=== PATIENT | female | born 1950 | race Caucasian/White ===

== ENCOUNTER → 2017-04-06 | Outpatient (CLI) | payer MEDICARE ==
--- NOTE | 2017-04-07 08:14 | RAD ---
EXAM DESCRIPTION: Ankle,Right 3 Views CLINICAL HISTORY: 66 years, Female, RIGHT ANKLE PAIN COMPARISON: None. TECHNIQUE: AP/lateral/oblique of the ankle FINDINGS: A transverse fracture at the tip of the lateral malleolus of the right ankle is present in essentially anatomic alignment. No disruption or widening of the ankle mortise is noted with modest soft tissue swelling laterally. Fracture fragment is approximately 5 mm in thickness and involves the tip of the lateral malleolus. The subtalar joint in the posterior medial malleoli are intact. IMPRESSION: 1. Nondisplaced lateral malleolar fracture at the tip of the lateral malleolus. Electronically signed by: Zev Ly MD 04/07/2017 8:13 AM CDT
== END | disposition home or self-care (01) ==
LOC: RAD 08:05
PROVIDERS: ATTEND Orthopaedic Surgery
DX: M25.571 Pain in right ankle and joints of right foot (principal)

== ENCOUNTER → 2017-04-20 | Outpatient (CLI) | payer MEDICARE ==
--- NOTE | 2017-04-21 12:35 | RAD ---
EXAM DESCRIPTION: Ankle,Right 3 Views CLINICAL HISTORY: CLOSED FX OF DISTAL FIBULA COMPARISON: April 06, 2017 IMPRESSION: 3 views of the right ankle again demonstrate a minimally displaced obliquely transverse fracture of the distal fibula unchanged from previous exam. There may be slightly more indistinctness of the fracture margins without significant periosteal thickening or bridging callus formation at this time. Mild soft tissue swelling over the lateral malleolus is seen. No other fracture or dislocation is seen. Electronically signed by: Josesito Head MD 04/21/2017 12:34 PM [facility]
== END | disposition home or self-care (01) ==
LOC: RAD 07:43
PROVIDERS: ATTEND Orthopaedic Surgery
DX: S82.831D Other fracture of upper and lower end of right fibula, subsequent encounter for closed fracture with routine healing (principal); X58.XXXA Exposure to other specified factors, initial encounter

== ENCOUNTER → 2017-05-19 | Outpatient (CLI) | payer MEDICARE ==
--- NOTE | 2017-05-20 03:27 | RAD ---
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 There is some osseous bridging of the previously noted fracture line. Ankle mortise is symmetric. Electronically signed by: Loki Arriaga MD 05/20/2017 3:26 AM OFFSET PRESS OPERATOR APPRENTICE
== END ==
LOC: RAD 07:37
PROVIDERS: ATTEND Orthopaedic Surgery
DX: S82.831D Other fracture of upper and lower end of right fibula, subsequent encounter for closed fracture with routine healing (principal)

== ENCOUNTER → 2018-12-24 | Outpatient (CLI) | payer MEDICARE ==
--- NOTE | 2018-12-25 07:39 | RAD ---
EXAM DESCRIPTION: Lumbar Spine 3 Views CLINICAL HISTORY: 68 years Female, LOW BACK PAIN COMPARISON: None. FINDINGS: Three views of the lumbar spine show slight convex rightward curvature of the right apex at the L2 level. No vertebral body fracture or subluxation. Disc space narrowing at several levels, worse at L2-3. The spinous and transverse processes are intact. The sacroiliac joints are unremarkable. IMPRESSION: Moderately advanced degenerative disc disease at L2-3 with less advanced degenerative changes elsewhere in the lumbar spine. Slight convex rightward curvature of the lower thoracic and lumbar spine. Electronically signed by: Rocky Oliveira MD 12/25/2018 7:37 AM CDT
== END ==
LOC: RAD 16:58
PROVIDERS: ATTEND Emergency Medicine
DX: M51.36 Other intervertebral disc degeneration, lumbar region (principal); M41.25 Other idiopathic scoliosis, thoracolumbar region

== ENCOUNTER → 2019-02-27 | Outpatient (CLI) | payer MEDICARE ==
--- NOTE | 2019-02-28 18:34 | US ---
EXAM DESCRIPTION: Abdomen,Complete: Ultrasound. CLINICAL HISTORY: ABD DISTENSION COMPARISON: Ultrasound of the pelvis on the same visit. TECHNIQUE: Transabdominal scanning: grayscale and Doppler modes.. Technically difficult study due to patient body habitus. FINDINGS: Gallbladder: Normal size and echogenicity with no intraluminal stones or sludge. Wall thickness 2.7 mm is normal. No fluid around the wall. Nontender with transducer pressure. Common bile duct: 4.5 mm normal caliber. Liver: Right lobe 14.9 cm long axis with no focal lesions. Overall increased echogenicity. Normal caliber of the portal vein with hepatopedal flow. Ducts normal caliber. Smooth capsule. Pancreas: Normal echoes and pancreatic duct not seen. Minimal fluid around the head of the pancreas.. Abdominal aorta: Normal caliber from the proximal segment to the distal bifurcation. IVC: visualized; normal caliber. Spleen normal echogenicity; long axis measurement is 11.6 cm. No fluid around the spleen. Right kidney: 9.9 cm long axis with cortical thickness 12 mm. Normal echogenicity. No echogenic stones, no perirenal fluid, no hydronephrosis. Left kidney: 10.3 cm long axis with cortical thickness 11 mm. Normal echogenicity. No echogenic stones, no perirenal fluid, no hydronephrosis. IMPRESSION: 1. Minimal fluid around the pancreas. Normal echogenicity. No fluid around the spleen or liver. Normal echoes of the spleen. Steatosis of the liver. Normal vascularity and ducts. 2. Gallbladder is negative. Common bile duct normal caliber. 3. Minimal cortical thinning and lower kidneys with normal echogenicity. Otherwise unremarkable. Electronically signed by: Stephen Han MD 02/28/2019 6:32 PM CDT
== END ==
LOC: US 08:00
PROVIDERS: ATTEND Emergency Medicine
DX: R14.0 Abdominal distension (gaseous) (principal); K76.0 Fatty (change of) liver, not elsewhere classified; R18.8 Other ascites

== ENCOUNTER → 2019-02-28 | Outpatient (CLI) | payer MEDICARE ==
--- NOTE | 2019-02-28 18:40 | US ---
EXAM DESCRIPTION: Pelvis Transvaginal: Ultrasound. CLINICAL HISTORY: 68 years Female ABDOMINAL DISTENSION COMPARISON: Ultrasound of the abdomen on the same visit. TECHNIQUE: Endovaginal scanning; Myers-scale and Doppler modes. FINDINGS: Uterus 6.4 x 5.3 x 3.4 cm . Endometrial thickness is 8.8 mm; heterogeneous. Myometrium appears heterogeneous.. Echogenic heterogeneous mass measures 2.8 x 2.4 x 2.4 cm. Second mass is also most likely a fibroid and measures 1.3 x 1.1 x 1.0 cm. Uterus retroflexed or retroverted. Cervix cyst measures 3.9 x 2.9 mm.. Cul-de-sac contains no fluid. Ovaries not well seen in the adnexa. No adnexal mass or free fluid. IMPRESSION: 1. Uterus appears to be retroverted or retroflexed. Not enlarged. Abnormally thickened endometrium and heterogeneous in a postmenopausal female. 2.8 and 1.3 cm fibroids. Nabothian cyst in the cervix. Gynecological consult is recommended. 2. No adnexal mass or fluid. Ovaries not seen. Electronically signed by: Stephen Han MD 02/28/2019 6:39 PM CDT
== END ==
LOC: US 14:00
PROVIDERS: ATTEND Emergency Medicine
DX: R14.0 Abdominal distension (gaseous) (principal); N85.8 Other specified noninflammatory disorders of uterus; D25.9 Leiomyoma of uterus, unspecified; N88.8 Other specified noninflammatory disorders of cervix uteri

== ENCOUNTER → 2019-03-01 | Outpatient (CLI) | payer MEDICARE ==
--- NOTE | 2019-03-04 12:29 | MRI ---
EXAM DESCRIPTION: Lumbar Spine w/o Contrast : Magnetic Resonance Imaging. CLINICAL HISTORY: RADICULOPATHY COMPARISON: Radiographs lumbar spine 12/24/2018. TECHNIQUE: Multiplanar, multiple standard sequences, non contrast MRI, lumbar spine. FINDINGS: L5-S1: The disc is well visualized on axial T2 series 501, image 3. Disc desiccation with disc space maintained no significant bulging. Hypertrophic arthrosis right facet and thickening of the right flavum ligament with canal patent. Mild bilateral foraminal narrowing. L4-L5: Disc desiccation, with disc space maintained and no bulging. Hypertrophic right facet arthrosis and bilateral ligament thickening. Mild canal narrowing. Bilateral mild foraminal narrowing. L3-L4: Disc desiccation and minimal disc space loss. Trace retrolisthesis. Schmorl's node in the inferior L3 endplate. Hypertrophic facet arthrosis on the right with no ligament thickening. Mild canal narrowing. Bilateral foramina are patent. L2-L3: Disc desiccation and disc space loss and endplate changes more severe in the midline and left of midline. Anterior disc bulging and endplate ridging. Schmorl's node. Trace retrolisthesis. Posterior disc and spur bulge more to the left of midline. Bilateral hypertrophic facet arthrosis and ligament thickening. AP canal diameter 12 mm. Disc osteophyte complex bulge into the left foramen with moderate to severe narrowing. Right foramen is patent. L1-L2: Disc desiccation and Anterior minimal endplate reactive changes, and minimal disc bulge. Canal and bilateral foramina are patent. T12-L1: Minimal disc desiccation with disc space maintained. Prominent anterior bulge. Posterior elements unremarkable. Canal and foramina are patent. Conus terminates at this level. L3-S1 levoscoliosis. T12-L3 dextroscoliosis. Paravertebral soft tissues negative. Distal cord normal signal and caliber. Normal marrow signal in the remaining vertebral bodies and the posterior elements. Vertebral bodies are not compressed at any level. IMPRESSION: 1. Multiple levels of disc desiccation, hypertrophic facet arthrosis and ligament thickening. Lumbar scoliosis. No canal or foraminal stenosis, but moderate to severe narrowing on the left at L2-L3 caused by bulging disc osteophyte complex. Multiple Schmorl's nodes in the endplates L1-L3. 2. Moderate spondylosis on the left at L2-L3 with posterior disc and spur bulge to the left of midline. Electronically signed by: Stephen Han MD 03/04/2019 12:27 PM CDT
== END ==
LOC: MRI 11:00
PROVIDERS: ATTEND Emergency Medicine
DX: M51.16 Intervertebral disc disorders with radiculopathy, lumbar region (principal); M51.46 Schmorl's nodes, lumbar region; M47.26 Other spondylosis with radiculopathy, lumbar region; R14.0 Abdominal distension (gaseous)

== ENCOUNTER 2019-10-16 20:01 | Emergency (ER) | payer MEDICARE ==
[2019-10-16 20:58] VITALS: TEMP 97.3
--- NOTE | 2019-10-16 20:58 | ED.PDOC ---
History of Present Illness - General Chief Complaint: Headache Stated Complaint: headache for 3 days Time Seen by Provider: 10/16/19 20:17 Source: patient, family Exam Limitations: no limitations - History of Present Illness Initial Comments: 69 y/o female with complaint of h/a for 3+ days starting dull and not very severe until today. She has felt nauseated and says her eyes hurt not just with light, denies neck stiffness, f/c, sinus or urinary problems. Her blood pressure is very high on arrival Allergies/Adverse Reactions: Allergies NO KNOWN ALLERGY Allergy (Verified 06/15/12 13:54) Home Medications: Ambulatory Orders Acyclovir [Zovirax] 400 mg PO Q8HRS #21 tab 04/12/14 predniSONE 20 mg PO BID #10 tab 04/12/14 Mecssnhohpjfn-Wsko-Cgpdkbgbdh [Fioricet] 1 ea PO Q4HR PRN #20 tab 10/16/19 Review of Systems - Review of Systems EENTM: States: eye pain Respiratory: States: no symptoms reported Cardiology: States: no symptoms reported Gastrointestinal/Abdominal: States: nausea Genitourinary: States: no symptoms reported Musculoskeletal: States: no symptoms reported Neurological: States: see HPI, headache Endocrine: States: other - Nuris's Past Medical History (General) - Patient Medical History Hx Seizures: No Hx Stroke: No Hx Dementia: No Hx Asthma: No Hx of COPD: No Hx Cardiac Disorders: No Hx Congestive Heart Failure: No Hx Pacemaker: No Hx Hypertension: Yes Hx Thyroid Disease: Yes Hx Diabetes: No Hx Gastroesophageal Reflux: No Hx Renal Disease: No Hx Cancer: No Hx of HIV: No Hx Hepatitis C: No Hx MRSA: No Surgical History: other - Vaccination History Hx Tetanus, Diphtheria Vaccination: No Hx Influenza Vaccination: No Hx Pneumococcal Vaccination: No Immunizations Up to Date: No - Social History Hx Tobacco Use: No Hx Chewing Tobacco Use: No Hx Alcohol Use: No Hx Substance Use: No Hx Substance Use Treatment: No Hx Depression: No Feels Threatened In Home Enviroment: No Feels Threatened In a Relationship: No Hx Physical Abuse: No Hx Emotional Abuse: No Hx Suspected Abuse: No - Activities of Daily Living Hospice Agency (if applicable):: None - Female History Patient is a Female of Child Bearing Age (10 -59 yrs old): No Family Medical History - Family History Mother Family History: Unknown Physical Exam - Physical Exam General Appearance: Anxious Eyes, Ears, Nose, Throat Exam: normal ENT inspection, pharynx normal Neck: non-tender, full range of motion, supple, normal inspection Cardiovascular/Chest: regular rate, rhythm, no edema, no gallop, no JVD, no murmur Respiratory: chest non-tender, lungs clear, normal breath sounds, no respiratory distress Gastrointestinal/Abdominal: non tender, soft, no organomegaly Back Exam: no CVA tenderness Extremity: normal range of motion, non-tender 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, 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: normal hearing, normal speech, PERRL Coordination/Gait: normal gait Motor/Sensory: no motor deficit, no sensory deficit Skin Exam: warm/dry, normal color Progress - Progress Progress: 10/16/19 21:55 H/A is much better Departure - Departure Clinical Impression: Elevated blood pressure, situational Headache Qualifiers: Headache type: unspecified Headache chronicity pattern: acute headache Intractability: intractable Qualified Code(s): R51 - Headache Disposition: Discharge to Home or Self Care Condition: Good Instructions: DI for Headache Referrals: SOLANGE BOYKIN [Primary Care Provider] - 1-2 Weeks Prescriptions: Zjwjyxtjtsbpr-Amck-Gvgkdvhnpn [Fioricet] 1 ea PO Q4HR PRN #20 tab PRN Reason: Headache Or Mild Pain Home Medications: Ambulatory Orders Acyclovir [Zovirax] 400 mg PO Q8HRS #21 tab 04/12/14 predniSONE 20 mg PO BID #10 tab 04/12/14 Qfhvtiowaphxu-Cjow-Nhakjeekmt [Fioricet] 1 ea PO Q4HR PRN #20 tab 10/16/19 Additional Instructions: sutures out in 7-10 days
[2019-10-16] MEDS: diphenhydrAMINE HCL 50 MG/ML VIAL IV PRN (20:59)
[2019-10-16] MEDS: SODIUM CHLORIDE 0.9% 500ML 500 ML IVS ONE (20:59)
[2019-10-16] MEDS: KETOROLAC TROMETHAMINE INJ 30 MG/ML VIAL IV ONE (20:59)
[2019-10-16] MEDS: HALOPERIDOL LACTATE INJ 5 MG/ML VIAL IV ONE (21:00)
--- NOTE | 2019-10-16 21:13 | CT ---
PROCEDURE: CT HEAD WITHOUT IV CONTRAST CLINICAL HISTORY: severe h/a for several days TECHNIQUE: Contiguous axial CT images obtained through the brain without IV contrast. Coronal and sagittal reformatted images were provided. This exam was performed according to our departmental dose-optimization program, which includes automated exposure control, adjustment of the mA and/or kV according to patient size and/or use of iterative reconstruction technique. COMPARISON: 04/12/2014 FINDINGS: Brain: Mild cerebral atrophy and bilateral periventricular and subcortical white matter low-attenuation most compatible with chronic microvascular angiopathy, mildly progressed. No focal mass effect. Myers-white matter differentiation is within normal limits. No hemorrhage. Ventricles: No ventriculomegaly or midline shift. Extra-axial spaces: No extra-axial collection or hemorrhage. Paranasal sinuses and mastoid air cells: Minimal right maxillary sinus mucosal thickening. Vessels: There is atherosclerotic disease of the internal carotid arteries bilaterally. Bones: Unremarkable Soft tissues: Unremarkable IMPRESSION: 1. No acute intracranial or extra-axial abnormality. 2. Other findings as above. Electronically signed by: Jimmy Garnica MD 10/16/2019 9:11 PM CDT
[2019-10-16 23:31] VITALS: BP 148/91; O2SAT 95
== END 2019-10-16 23:46 | disposition home or self-care (01) ==
LOC: ER 20:01
DX: R51 Headache (principal); I10 Essential (primary) hypertension; R11.0 Nausea
CPT/HCPCS: 36415; 70450; 80053; 81001; 84443; 85025; J1200; J1630; J1885; J7040

== ENCOUNTER 2019-10-23 09:31 | Observation (INO) | payer MEDICARE ==
[2019-10-23] MEDS ORDERED: PROMETHAZINE HCL INJ 12.5 MG in SODIUM CHLORIDE 0.9% 50ML 50 ML IVPB ONE (09:38)
[2019-10-23] MEDS ORDERED: diphenhydrAMINE HCL 50 MG/ML VIAL IV STA (09:38)
[2019-10-23] MEDS ORDERED: DEXAMETHASONE INJ 10 MG/ML VIAL IV ONE (09:38)
[2019-10-23] MEDS ORDERED: hydrALAZINE HCl 20 MG/ML VIAL IV ONE (09:44)
--- NOTE | 2019-10-23 09:44 | ED.PDOC ---
History of Present Illness - General Time Seen by Provider: 10/23/19 09:37 Additional Information: 69 year old female with history of hbp, patient presents with headaches, patient stated that she does not have any history of migraine was seen here recently here for the same she feels like her head is about to blow up and also feels ear pressure her head ct was negative and with the headaches she has noticed elevated blood pressure denies fever, chills, neck pain and no cough no recent trauma patient was supposed to see her primary md today but couldn't wait due to the headache I was able to speak with patient's daughter and for the past several months patient has had issues with her memory and shakiness and even has had episodes of slurred speech Patient denies any recent falls and associated with the headaches she endorses nausea - History of Present Illness Timing/Duration: constant Quality: pressure Recent Head Trauma: frequent headaches Improving Factors: nothing Worsening Factors: nothing Allergies/Adverse Reactions: Allergies NO KNOWN ALLERGY Allergy (Verified 10/23/19 09:50) Home Medications: Ambulatory Orders Gmaxuyqjjaxfn-Msvr-Snvoplkplt [Fioricet] 1 ea PO Q4HR PRN #20 tab 10/16/19 Alprazolam [Xanax] 1 mg PO Q8H PRN 10/23/19 Ascorbic Acid [Vitamin C] 2,000 mg PO DAILY 10/23/19 Calcium W/ Vitamin D [Calcium] 1 tab PO DAILY 10/23/19 Cholecalciferol [Vitamin D] 1,000 unit PO DAILY 10/23/19 DULoxetine HCL [Cymbalta] 30 mg PO DAILY 10/23/19 Gabapentin 300 mg PO BEDTIME 10/23/19 Levothyroxine Sodium [Synthroid] 75 mcg PO DAILY 10/23/19 Lisinopril 40 mg PO DAILY 10/23/19 Magnesium [Magnesium 250 mg] 1 tab PO DAILY 10/23/19 Metoprolol Tartrate 50 mg PO BID 10/23/19 Multiple Vitamins W/ Minerals [Multivitamin Adults] 1 tab PO DAILY 10/23/19 [place]-3 Fatty Acids [Fish Oil 1000 mg] 2 cap PO DAILY 10/23/19 Review of Systems - Review of Systems Constitutional: States: no symptoms reported EENTM: States: no symptoms reported Respiratory: States: no symptoms reported Cardiology: States: no symptoms reported Gastrointestinal/Abdominal: States: no symptoms reported, nausea Genitourinary: States: no symptoms reported Musculoskeletal: States: no symptoms reported Neurological: States: no symptoms reported, headache Endocrine: States: no symptoms reported Hematologic/Lymphatic: States: no symptoms reported All other Systems: Reviewed and Negative Past Medical History (General) - Patient Medical History Hx Seizures: No Hx Stroke: No Hx Dementia: No Hx Asthma: No Hx of COPD: No Hx Cardiac Disorders: No Hx Congestive Heart Failure: No Hx Pacemaker: No Hx Hypertension: Yes Hx Thyroid Disease: Yes Hx Diabetes: No Hx Gastroesophageal Reflux: No Hx Renal Disease: No Hx Cancer: No Hx of HIV: No Hx Hepatitis C: No Hx MRSA: No - Vaccination History Hx Tetanus, Diphtheria Vaccination: No Hx Influenza Vaccination: No Hx Pneumococcal Vaccination: No - Social History Hx Tobacco Use: No Hx Chewing Tobacco Use: No Hx Alcohol Use: No Hx Substance Use: No Hx Substance Use Treatment: No Hx Depression: No Hx Physical Abuse: No Hx Emotional Abuse: No Hx Suspected Abuse: No Family Medical History - Family History Mother Family History: Unknown Physical Exam - Physical Exam General Appearance: Alert, Obvious distress, Well Developed, Well Groomed, Well Hydrated, Well Nourished Eyes, Ears, Nose, Throat Exam: PERRL/EOMI, normal ENT inspection, TMs normal, pharynx normal Neck: non-tender, full range of motion, supple, normal inspection, trachea midline Cardiovascular/Chest: normal peripheral pulses, regular rate, rhythm, no edema, no gallop, no JVD, no murmur Respiratory: chest non-tender, lungs clear, normal breath sounds, no respiratory distress, no accessory muscle use Gastrointestinal/Abdominal: normal bowel sounds, non tender, soft, no organomegaly, no pulsatile mass Back Exam: normal inspection, no CVA tenderness 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 I ordered Labetalol and Head ct I saw the CT and I didnt see any obvious head bleeds daughter tells me that patient is not complaint with medications and that She is always eating out and not following a proper diet Patient will be admitted pending official ct report 10/23/19 11:20 Patient does not have any neurological deficits, patient is alert and awake appears no distress no chest pain suspect that this patient is probably suffering from a hypertensive urgency but given the fact that she has been seen here before for the same symptoms I suggested to admit her to the hospital for blood pressure optimization 10/23/19 11:28 MPRESSION: MILD ATROPHY AND MICROVASCULAR WHITE MATTER CHANGES WITHOUT CHANGES OF AN ACUTE INTRACRANIAL ABNORMALITY. ACUTE INFARCT MAY BE INAPPARENT ON A BACKGROUND OF MICROVASCULAR DISEASE. MRI CAN BE PERFORMED IF CLINICALLY INDICATED Patient will be admitted since head CT did not show any intracranial normalities 10/23/19 11:30 This patient did not have any meningeal signs, no nuchal rigidity, no fever no chills and no neurological deficit prior to admission - EKG/XRAY/CT EKG: Sinus, no ST T wave changes Comments: heart rate 61 Departure - Departure Clinical Impression: Headache Qualifiers: Headache type: unspecified Headache chronicity pattern: acute headache Intractability: intractable Qualified Code(s): R51 - Headache Disposition: Admit Patient Referrals: SOLANGE BOYKIN [Primary Care Provider] - 1-2 Weeks Home Medications: Ambulatory Orders Zpnzgmwrpbwdr-Bmsx-Syxxhllelp [Fioricet] 1 ea PO Q4HR PRN #20 tab 10/16/19 Alprazolam [Xanax] 1 mg PO Q8H PRN 10/23/19 Ascorbic Acid [Vitamin C] 2,000 mg PO DAILY 10/23/19 Calcium W/ Vitamin D [Calcium] 1 tab PO DAILY 10/23/19 Cholecalciferol [Vitamin D] 1,000 unit PO DAILY 10/23/19 DULoxetine HCL [Cymbalta] 30 mg PO DAILY 10/23/19 Gabapentin 300 mg PO BEDTIME 10/23/19 Levothyroxine Sodium [Synthroid] 75 mcg PO DAILY 10/23/19 Lisinopril 40 mg PO DAILY 10/23/19 Magnesium [Magnesium 250 mg] 1 tab PO DAILY 10/23/19 Metoprolol Tartrate 50 mg PO BID 10/23/19 Multiple Vitamins W/ Minerals [Multivitamin Adults] 1 tab PO DAILY 10/23/19 [place]-3 Fatty Acids [Fish Oil 1000 mg] 2 cap PO DAILY 10/23/19
[2019-10-23] MEDS ORDERED: PROMETHAZINE HCL INJ 25 MG/ML VIAL ONE (09:53)
[2019-10-23] MEDS ORDERED: SODIUM CHLORIDE 0.9% 50ML 50 ML ONE (09:54)
[2019-10-23] MEDS ORDERED: LABETALOL INJ 5 MG/ML VIAL IV ONE (10:48)
--- NOTE | 2019-10-23 11:19 | CT ---
EXAM: Head CT CLINICAL HISTORY: headache COMPARISON STUDY: October 16, 2019 CT head without contrast TECHNICAL: Non-contrasted CT images of the brain were performed. FINDINGS: There is mild diffuse cerebral and cerebellar atrophy. There are mild periventricular white matter low-density changes suggesting microvascular disease. Small basal ganglion lacunar infarcts are present. There is no intracranial hemorrhage, mass, or mass effect. There are no imaging findings that would suggest an acute territorial infarction. The calvarium is intact. IMPRESSION: MILD ATROPHY AND MICROVASCULAR WHITE MATTER CHANGES WITHOUT CHANGES OF AN ACUTE INTRACRANIAL ABNORMALITY. ACUTE INFARCT MAY BE INAPPARENT ON A BACKGROUND OF MICROVASCULAR DISEASE. MRI CAN BE PERFORMED IF CLINICALLY INDICATED. This exam was performed according to our departmental dose-optimization program, which includes automated exposure control, adjustment of the mA and/or kV according to patient size and/or use of iterative reconstruction technique. Electronically signed by: Andrew Connelly MD 10/23/2019 11:17 AM CDT
[2019-10-23] MEDS ORDERED: ONDANSETRON INJ 4 MG/2 ML VIAL IV PRN (12:20)
[2019-10-23] MEDS ORDERED: SODIUM CHLORIDE 0.9% (FLUSH) 10 ML SYG IV PRN (12:20)
[2019-10-23] MEDS ORDERED: cloNIDine HCL 0.1 MG TAB PO PRN (12:27)
[2019-10-23] MEDS ORDERED: IV SET AND CAP CHANGE INJ INJ SCH (12:30)
[2019-10-23] MEDS: ACETAMINOPHEN-CAFF-BUTALBITAL 1 EA TAB PO PRN (13:28)
[2019-10-23] MEDS: ALPRAZolam 0.5 MG TAB PO PRN (13:28)
[2019-10-23] MEDS: LISINOPRIL 10 MG TAB PO SCH (15:51)
[2019-10-23] MEDS ORDERED: HYDROcodone 7.5MG/APAP 325MG 1 EA TAB PO ONE (16:05)
[2019-10-23] MEDS: METOPROLOL TARTRATE 50 MG TAB PO SCH ×2 (16:19→20:45)
[2019-10-23] MEDS ORDERED: TEMAZEPAM 15 MG CAP PO PRN (19:15)
[2019-10-23] MEDS ORDERED: HYDROcodone 5MG/APAP 325MG 1 EA TAB PO PRN (19:15)
[2019-10-23] MEDS: SODIUM CHLORIDE 0.9% (FLUSH) 10 ML SYG IV SCH (20:45)
[2019-10-23] MEDS ORDERED: ENOXAPARIN SODIUM 40 MG/0.4 ML SYG SUBCU SCH (21:00)
[2019-10-23] MEDS ORDERED: GABAPENTIN 300 MG CAP PO SCH (21:00)
[2019-10-24] MEDS: ACETAMINOPHEN-CAFF-BUTALBITAL 1 EA TAB PO PRN ×2 (01:47→06:45)
[2019-10-24] MEDS ORDERED: OMEPRAZOLE CAP 20 MG CAP PO SCH (06:30)
[2019-10-24] MEDS ORDERED: LEVOTHYROXINE SODIUM 0.075 MG TAB PO SCH (07:00)
--- NOTE | 2019-10-24 07:53 | MRI ---
EXAM DESCRIPTION: Brain w/oContrast CLINICAL HISTORY: tia vs cva; olivas COMPARISON: CT head October 23, 2019 TECHNIQUE: Multiplanar, multi sequence MR images of the head are obtained without IV gadolinium contrast using standard imaging protocol. FINDINGS: The midline structures are not displaced. Sulci are age appropriate. The lateral, third, and fourth ventricles are normal in size, shape, and anatomic positioning. Normal kohler-white differentiation is seen. Normal flow voids are seen in the major intracranial vessels including the dural venous sinuses. There is no evidence of mass, mass effect, hydrocephalus, or acute intracranial hemorrhage. No abnormal extra-axial fluid collections are seen. Moderate scattered foci of increased FLAIR/T2 signal are seen in the periventricular white matter and white matter of the centrum semiovale. No diffusion restriction. Gradient echo images show no abnormal signal. The pituitary is unremarkable. Visualized paranasal sinuses are unremarkable. The visualized orbits and mastoid air cells are unremarkable. IMPRESSION: Age-appropriate atrophy with moderate old small vessel ischemic type changes are seen. No MRI evidence of acute intracranial ischemia, mass, or mass effect. Electronically signed by: Josesito Head MD 10/24/2019 7:51 AM CDT
[2019-10-24] MEDS ORDERED: DULoxetine HCL 30 MG CAP PO SCH (09:00)
[2019-10-24] MEDS: LISINOPRIL 10 MG TAB PO SCH (10:11)
[2019-10-24] MEDS: METOPROLOL TARTRATE 50 MG TAB PO SCH (10:11)
[2019-10-24] MEDS: SODIUM CHLORIDE 0.9% (FLUSH) 10 ML SYG IV SCH (10:11)
[2019-10-24] MEDS: ALPRAZolam 0.5 MG TAB PO PRN (10:15)
[2019-10-24 10:23] VITALS: O2SAT 100
--- NOTE | 2019-10-24 12:01 | US ---
EXAM DESCRIPTION: Carotid Duplex CLINICAL HISTORY: tia vs cva COMPARISON: None Available. TECHNIQUE: Color Doppler evaluation of the extracranial carotids FINDINGS: Right carotid: There is no significant plaque in the common, internal, or external carotid arteries. Peak systolic velocity common carotid artery = 54 cm/s Peak systolic velocity internal carotid artery = 52 cm/s Peak systolic velocity external carotid artery = 70 cm/s ICA CCA ratio 1.0 Left carotid: No significant plaque is seen in the left common, internal, or external carotid arteries. Peak systolic velocity common carotid artery = 45 cm/s Peak systolic velocity internal carotid artery = 53 cm/s Peak systolic velocity external carotid artery = 51 cm/s ICA CCA ratio 1.2 Antegrade flow is seen in both vertebral arteries Normal flow velocities and waveforms are demonstrated bilaterally. IMPRESSION: No atherosclerotic involvement of the extracranial carotid arteries. No evidence of hemodynamically significant stenosis Electronically signed by: Josesito Head MD 10/24/2019 11:59 AM CDT
[2019-10-24 13:07] VITALS: BP 153/90; TEMP 97.8
--- NOTE | 2019-11-05 08:39 | SSS ---
SUPERVISING PHYSICIAN: Booker Pedersen MD DATE OF ADMISSION: 10/23/19 DATE OF ADMISSION: 10/24/19 DISCHARGE DIAGNOSIS: 1. Transient ischemic attack versus cerebrovascular accident with negative MRI of the brain. 2. Severe headache, most likely secondary to hypertension. 3. Hypertensive emergency with a history of hypertension, presently on a beta zuleika and an MALLORY inhibitor. 4. History of migraine headaches. 5. Anxiety. 6. Hypothyroidism. HISTORY OF PRESENT ILLNESS: This is a 69-year-old female patient who has a history of high blood pressure who came in with a headache. She says she does not have a history of migraines, but she has a headache medication on her home medication list and she is somewhat a poor historian. She had been in the Emergency Room several days prior for a headache. She says her head was about to blow up and also feels ear pressure. CT of her head was negative. She also had an elevated blood pressure. Her vital signs on admission showed a temperature of 98.5, heart rate 64, blood pressure 206/128, respiratory rate 16, O2 saturation 97%. She was given some hydralazine in the Emergency Room and some Zofran. Her blood pressure was monitored. Due to her elevated blood pressure, I was called for hospital admission. PAST MEDICAL HISTORY: 1. Hypertension. 2. Anxiety and depression. 3. Peripheral neuropathy. 4. Hypothyroidism. 5. Headaches of unknown etiology. PAST SURGICAL HISTORY: Unknown. OUTPATIENT MEDICATIONS: 1. Calcium with vitamin D. 2. Vitamin D. 3. Duloxetine. 4. Gabapentin. 5. Levothyroxine. 6. Lisinopril. 7. Magnesium. 8. Metoprolol tartrate. 9. Multivitamins. 10. Thompson 3 fatty acids. 11. Fioricet. 12. Alprazolam. 13. Ascorbic acid. ALLERGIES: NO KNOWN DRUG ALLERGIES. SOCIAL HISTORY: She lives in [place]. She has no history of tobacco, ETOH or illicit drug use. REVIEW OF SYSTEMS: GENERAL: Negative for fever, fatigue or weight changes. HEENT: Negative for sinus symptoms, ear pain, vision changes or sore throat. RESPIRATORY: Negative for wheezing, coughing or shortness of breath. CARDIAC: Negative for chest pain, palpitations or tachycardia. GASTROINTESTINAL: Positive for some nausea without vomiting. Negative for constipation or diarrhea. GENITOURINARY: Negative for hematuria, dysuria or polyuria. MUSCULOSKELETAL: Negative for arthralgias, myalgias. SKIN: Negative for lesions or rashes. NEUROLOGIC: Positive for headache. Negative for dizziness or seizures. PHYSICAL EXAMINATION: VITAL SIGNS: Temperature 98.5, heart rate 69, blood pressure 169/95, respiratory rate 22, O2 saturation 92% on room air. GENERAL: This is a 69-year-old female patient lying in her hospital bed. She is in no acute distress. HEENT: Normocephalic, atraumatic. Pupils are equal and reactive. Oropharynx is clear. NECK: Supple without mass. RESPIRATORY: Essentially clear to auscultation bilaterally. CHEST: There is equal rise and fall of the chest with inspiration and expiration. CARDIOVASCULAR: Regular rate and rhythm. GASTROINTESTINAL: Abdomen is soft, nondistended, nontender. Bowel sounds are positive. EXTREMITIES: No cyanosis, clubbing or edema. NEUROLOGIC: Awake, alert and oriented times three. SKIN: Warm and dry. HOSPITAL COURSE: The patient was placed in observation to monitor her blood pressure closely. She also had an echocardiogram, carotid artery ultrasound and brain MRI ordered and the CVA/TIA order set was initiated. She had neuro checks. She was given some clonidine p.r.n. for elevated blood pressure. Her blood pressure has mostly normalized. Her headache initially required some [place], but is now resolved. She will need close followup with her primary care physician on discharge. LABORATORY: Her CBC was within normal limits. Sodium was slightly low at 133, potassium 3.9. The remainder of her electrolytes were within normal limits. Her triglycerides were 78, LDL 99.7, HDL 57, TSH 2.41, thyroxine 9.4. RADIOLOGY: Her brain MRI showed age-appropriate atrophy with moderate old small vessel ischemia type changes seen. No MRI evidence of acute intracranial ischemic, mass or mass effect. Her carotid artery ultrasound showed no atherosclerotic involvement of the extracranial carotid arteries, no evidence of hemodynamically significant stenosis. Her echocardiogram showed 1) Normal left ventricular size and systolic function, normal global wall motion, estimated ejection fraction of 60%. 2) Normal right ventricular size and function. 3) Trace to mild aortic valve regurgitation. 4) Normal pericardium. Her EKG showed normal sinus rhythm. DISCHARGE PLAN: The patient will be discharged home in stable condition. She is to resume her previous diet and increase her activity as tolerated. She is to followup with Dr. Shahram Hayes on 11/01/19 at 1 PM. In addition to her routine medications, I have given her clonidine as needed for elevated blood pressure. All of the appropriate radiology reports have been sent to Dr. Hayes via fax. She is to return to the hospital or followup with Dr. Hayes for any problems or complications. DISCHARGE MEDICATIONS: 1. Fioricet. 2. Magnesium. 3. Calcium with vitamin D. 4. Vitamin D. 5. Thompson 3 fatty acids. 6. Multivitamin. 7. Levothyroxine. 8. Duloxetine. 9. Alprazolam. 10. Lisinopril. 11. Gabapentin. 12. Metoprolol tartrate. 13. Vitamin C. 14. Clonidine p.r.n. #[id number] [facility]
== END 2019-10-24 14:15 | disposition home or self-care (01) ==
LOC: ER 09:31 → MS 11:51
PROVIDERS: ADMIT Nurse Practitioner Acute Care; ATTEND Nurse Practitioner Acute Care
DX: I16.1 Hypertensive emergency (principal); I10 Essential (primary) hypertension; R51 Headache; F41.9 Anxiety disorder, unspecified; E03.9 Hypothyroidism, unspecified; E87.1 Hypo-osmolality and hyponatremia; F32.9 Major depressive disorder, single episode, unspecified; G62.9 Polyneuropathy, unspecified; I34.0 Nonrheumatic mitral (valve) insufficiency; I36.1 Nonrheumatic tricuspid (valve) insufficiency; I35.1 Nonrheumatic aortic (valve) insufficiency; Z79.899 Other long term (current) drug therapy
CPT/HCPCS: 96365; 96375; 96372; J1200; J0360; J2405; J2550; A4216; J1650; J1100; 80053 ×2; 80061; 36415 ×3; 85025 ×2; 83735; 84443; 84436; 70450; 93880; 94760 ×5; 99285; 93306; 70551; 93005; G0378

== ENCOUNTER → 2019-11-26 | Outpatient (CLI) | payer MEDICARE ==
--- NOTE | 2019-11-27 17:18 | MAM ---
EXAM DESCRIPTION: 3D Screening BILATERAL : Digital Mammography. CLINICAL HISTORY: 69 years Female ANNUAL SCREENING . No complaints. No personal or family history of breast cancer. Menarche age 14. Childbirth age 20. Menopause age 53. No HRT. Lifetime risk of developing breast cancer (Tyrer-Cuzick model)(%): 4.0. COMPARISON: Bilateral 2-D digital screening mammography October 2012.. No prior reports available. TECHNIQUE: Bilateral CC and MLO projection full-field images, digital tomosynthesis mammographic technique. Bilateral digital 2-D full-field MLO images. CAD available for 2-D images. FINDINGS: The breast parenchymal density pattern is: Scattered areas of fibroglandular density. No skin thickening or nipple retraction. Bilateral solitary microcalcifications. New linear distribution of benign type calcifications in the anterior left breast. No new focal, stellate mass or density, focal asymmetry , and no suspicious microcalcifications . Stable mammograms compared to prior study. Taking into account, differences in mammographic technique. IMPRESSION: Benign exam. BIRAD CATEGORY: 2 BENIGN FINDINGS. RECOMMENDATIONS: FOLLOW UP: Routine digital bilateral mammographic screening, one year interval from November 2019. Written communication explaining the IMPRESSION and follow-up, will be mailed to the patient and referring health care provider. According to the [employer], yearly mammograms are recommended starting at age 40 and continuing as long as a woman is in good health. Any breast change noted on a breast self-exam should be reported promptly to the patient's healthcare provider. Breast MRI is recommended for women with an approximately 20-25% or greater lifetime risk of breast cancer, including women with a strong family history of breast or ovarian cancer and women who have been treated for Hodgkin's disease. A negative mammographic report should not delay tissue diagnosis in patients with significant clinical history or physical findings. Extremely dense breast tissue limits the sensitivity of digital mammography. Electronically signed by: Stephen Han MD 11/27/2019 5:16 PM CDT
== END ==
LOC: MAMMO 12:35
PROVIDERS: ATTEND Emergency Medicine
DX: Z12.31 Encounter for screening mammogram for malignant neoplasm of breast (principal)